=== PATIENT | male | born 1965 | race African-American/Black ===

== ENCOUNTER → 2016-09-04 | Outpatient (CLI) | payer OTHER ==
--- NOTE | ~2016-09-04 | CT4 ---
[facility] A Service of [facility] & [facility] RADIOLOGY TEXT RESULTS PATIENT: JUAN JOSÉ AYALA LOCATION: [facility] : 67 UNIT #: [id number] AGE: [address]: Oral Krishnamurthy MD SEX: M ORDER DR: [id number] [facility] [address] [place], [place] [address] [id number] O MR#: [id number] Acc #: [id number] NAME: JUAN JOSÉ AYALA : 1965 SEX: M STUDY DATE/TIME: 09/04/2016 10:21 UNIT: [facility] ROOM: STUDY DESCRIPTION: CT Abd and Pelv Wo Cont Attending Physician: Oral Krishnamurthy M.D. Referring Physician: Oral Krishnamurthy M.D. Ordering Physician: Oral Krishnamurthy M.D. Primary Care Physician: Oral Krishnamurthy M.D. MEDICAL IMAGING REPORT This report is preliminary unless electronic signature is present EXAM Abdomen and pelvis CT, no contrast, 09/04/2016 INDICATIONS 51-year-old male with abdominal pain, epigastric symptoms 2 months history of hernia surgery 2 years ago. Bowel movement urgency after working out. TECHNIQUE Noncontrast abdomen and pelvis CT was performed. We have no comparisons. This CT exam was performed with one or more of the following radiation dose reduction techniques: automatic exposure control, adjustment of mA and/or kV according to patient size, and iterative reconstruction. FINDINGS CT ABDOMEN: Exam degraded by noncontrast technique. Included lung bases clear. No effusion or pneumothorax. No pericardial effusion. Aorta unremarkable. Spleen, adrenal glands, and pancreas unremarkable. Gallbladder and liver unremarkable. No radiopaque stone or hydronephrosis of either kidney. Visualized ureter is unremarkable. Probable small hiatal hernia. CT PELVIS: Bladder unremarkable. Prostate within normal limits. No drainable fluid collection in the pelvis. There is colonic diverticulosis. The appendix is normal. No inguinal adenopathy or fluid collection. There are metallic clips in the low abdomen and pelvis characteristic of prior surgery. Tiny umbilical hernia containing fat only. No suspicious bone lesion. There is degenerative change at L5-S1. There is degenerative change of the hips, left greater than right. IMPRESSION [facility]. [facility] A Service of [facility] & [facility] RADIOLOGY TEXT RESULTS PATIENT: JUAN JOSÉ AYALA LOCATION: [facility] : 67 UNIT #: [id number] AGE: [address]: Oral Krishnamurthy MD SEX: M ORDER DR: 1. Negative noncontrast abdomen and pelvis CT. The appendix is normal. There is no hydronephrosis or stone associated with either kidney. 2. Incidental diverticulosis. Dictated by... Kingsley Thompson M.D. THIS IS AN ELECTRONICALLY VERIFIED REPORT Kingsley Thompson M.D. at 09/05/2016 7:34 AM Terry TD: 09/05/2016 00:31 JOB #: [id number] MEDICAL IMAGING REPORT Page 1 of 1 COPY
== END | disposition home or self-care (01) ==
LOC: CCAT 09:54
DX: R10.9 Unspecified abdominal pain (principal)
CPT/HCPCS: 74176